=== PATIENT | female | born 1970 | race Caucasian/White ===

== ENCOUNTER 2019-12-10 17:30 | Observation (INO) ==
[2019-12-10] MEDS ORDERED: Naloxone 0.4 MG/ML INJ IVP ONE (18:08)
[2019-12-10] MEDS ORDERED: 0.9 % Sodium Chloride 1,000 ML IVC ONE (18:08)
[2019-12-10 18:38] LABS: Basophils # 0.1 K/mcL (0.0-0.2); Eosinophils # 0.1 K/mcL (0.0-0.6); Eosinophils % 1.3 %; Hematocrit 35.7 % (35.3-44.9); Hemoglobin 11.5 g/dL (11.5-15.4); Immature Granulocytes % 0.4 % (0-4); Lymphocytes # 2.1 K/mcL (0.6-4.6); Lymphocytes % 30.1 %; Mean Corpuscular HGB Conc 32.2 g/dL (31.6-35.5); Mean Corpuscular Volume 87.1 fL (83.0-100.0); Mean Platelet Volume 10.5 fL (9.4-12.4); Monocytes # 0.4 K/mcL (0.0-1.3); Monocytes % 6.3 %; Neutrophils # 4.1 K/mcL (1.6-8.9); Platelet Count 245 K/mcL (140-400); Segmented Neutrophils % 60.9 %; White Blood Count 6.8 K/mcL (4.3-11.1)
[2019-12-10 18:56] LABS: Acetaminophen < 10 mcg/mL (10-20); Alanine Aminotransferase 9 Units/L (7-52); Albumin 4.1 g/dL (3.5-5.7); Albumin/Globulin Ratio 1.4 (1.1-2.2); Alkaline Phosphatase 55 Units/L (34-104); Aspartate Amino Transferase 11 Units/L (13-39); BUN/Creatinine Ratio 16 (6-26); Bilirubin,Direct 0.1 mg/dL (0.0-0.2); Bilirubin,Indirect 0.3 mg/dL (0.0-1.0); Bilirubin,Total 0.4 mg/dL (0.3-1.0); Blood Urea Nitrogen 15 mg/dL (6-20); Calcium 9.1 mg/dL (8.6-10.3); Carbon Dioxide 23 mEq/L (23-29); Chloride 110 mEq/L (98-107); Ethanol 11 mg/dL (Less than 10); Globulin 2.9 g/dL (2.4-3.5); Glucose 100 mg/dL (70-105); Osmolality,Calculated 293 (280-300); Potassium 3.5 mEq/L (3.5-5.1); Salicylate < 2.5 mg/dL (15.0-30.0); Sodium 141 mEq/L (136-145); eGFR For African Americans > 60 (> 60); eGFR For Non-African Americans > 60 (> 60)
[2019-12-10 20:30] LABS: ABG Base Excess -4 mEq/L (-2 to 3); ABG HCO3 21 mEq/L (21-27); ABG Oxygen Saturation 96 % (95-98); ABG PCO2 36 mmHg (35-45); ABG PH 7.37 pH Units (7.32-7.45); ABG PO2 86 mmHg (85-104); ABG TCO2 22 mEq/L (20-26)
[2019-12-10 20:52] LABS: Bilirubin,Urine Negative (Negative); Blood,Urine Trace (Negative); Clarity,Urine Clear (Clear); Color,Urine Light-Yellow (Yellow); Glucose,Urine (UA) Normal (Normal); Hyaline Casts,Urine Few per lpf (None Seen); Ketones,Urine 20 mg/dL (Negative); Leukocyte Esterase,Urine Negative (Negative); Mucus,Urine Few per lpf (None-Few); Nitrite,Urine Negative (Negative); PH,Urine 5.5 pH Units (5.0-8.0); Protein,Urine Negative (Neg-Trace); Specific Gravity,Urine 1.016 (1.010-1.025); Urobilinogen,Urine Normal (Normal); WBC,Urine 0-3 per hpf (0-3)
[2019-12-10 21:08] LABS: Amphetamine Screen,Urine Positive ng/mL (Cutoff=1000); Barbiturate Screen,Urine Negative ng/mL (Cutoff=200); Benzodiazepines Screen,Urine Negative ng/mL (Cutoff=200); Cannabinoid Screen,Urine Negative ng/mL (Cutoff = 50); Cocaine Screen,Urine Negative ng/mL (Cutoff= 300); Opiate Screen,Urine Negative ng/mL (Cutoff=300); Phencyclidine Screen,Urine Negative ng/mL (Cutoff=25)
[2019-12-10] MEDS ORDERED: Naloxone 0.4 MG/ML INJ IVP PRN (23:36)
[2019-12-10] MEDS ORDERED: 0.9 % Sodium Chloride 1,000 ML IVC SCH (23:45)
[2019-12-11 04:16] LABS: Basophils % 0.6 %; Eosinophils # 0.1 K/mcL (0.0-0.6); Eosinophils % 0.9 %; Hematocrit 35.5 % (35.3-44.9); Immature Granulocytes % 0.2 % (0-4); Lymphocytes # 1.9 K/mcL (0.6-4.6); Lymphocytes % 29.5 %; Mean Corpuscular Hemoglobin 27.8 pg (28.0-33.3); Mean Corpuscular Volume 89.9 fL (83.0-100.0); Mean Platelet Volume 10.2 fL (9.4-12.4); Monocytes # 0.5 K/mcL (0.0-1.3); Platelet Count 201 K/mcL (140-400); Red Blood Count 3.95 M/mcL (3.82-4.97); Red Cell Distribution Width 12.9 % (11.5-14.5); Segmented Neutrophils % 61.8 %; White Blood Count 6.5 K/mcL (4.3-11.1)
[2019-12-11 04:33] LABS: Alanine Aminotransferase 7 Units/L (7-52); Albumin 3.7 g/dL (3.5-5.7); Albumin/Globulin Ratio 1.4 (1.1-2.2); Alkaline Phosphatase 52 Units/L (34-104); Aspartate Amino Transferase 10 Units/L (13-39); BUN/Creatinine Ratio 14 (6-26); Bilirubin,Total 0.4 mg/dL (0.3-1.0); Blood Urea Nitrogen 9 mg/dL (6-20); Calcium 8.6 mg/dL (8.6-10.3); Carbon Dioxide 22 mEq/L (23-29); Chloride 114 mEq/L (98-107); Globulin 2.6 g/dL (2.4-3.5); Glucose 99 mg/dL (70-105); Osmolality,Calculated 293 (280-300); Potassium 3.7 mEq/L (3.5-5.1); Sodium 142 mEq/L (136-145); Total Protein 6.3 g/dL (6.4-8.9); eGFR For African Americans > 60 (> 60); eGFR For Non-African Americans > 60 (> 60)
[2019-12-11] MEDS: *HR* Heparin 5,000 UNIT/ML VIAL SQ SCH ×3 (05:46→20:32)
[2019-12-11] MEDS ORDERED: 0.9 % Sodium Chloride 1,000 ML IVC SCH (09:00)
[2019-12-11] MEDS: 0.9 % Sodium Chloride 1,000 ML IVC SCH (17:13)
[2019-12-12] MEDS: 0.9 % Sodium Chloride 1,000 ML IVC SCH ×2 (00:29→08:34)
[2019-12-12] MEDS: *HR* Heparin 5,000 UNIT/ML VIAL SQ SCH (05:06)
[2019-12-12 07:06] VITALS: BP 131/77
== END 2019-12-12 11:00 ==
LOC: EMEROOARM 17:30 → 3BNU 17:30 → SUATTDRO 12-11 01:01 → 3BNU 12-11 01:39
PROVIDERS: ADMIT Family Medicine; ATTEND Family Medicine

== ENCOUNTER 2019-12-12 11:04 | Inpatient (IN) ==
[2019-12-12] MEDS ORDERED: hydrOXYzine pamoate 25 MG CAPSULE PO PRN (11:39)
[2019-12-12] MEDS ORDERED: Haloperidol Lactate 5 MG/ML VIAL IM PRN (11:39)
[2019-12-12] MEDS ORDERED: MOM Conc 10 ML UD.LIQ PO PRN (11:39)
[2019-12-12] MEDS ORDERED: *HR* LORazepam 2 MG/ML VIAL IM PRN (11:39)
[2019-12-12] MEDS ORDERED: *HR* LORazepam 1 MG TABLET PO PRN (11:39)
[2019-12-12] MEDS ORDERED: haloperidoL 5 MG TABLET PO PRN (11:39)
[2019-12-12] MEDS ORDERED: Mag Hydrox/Al Hydrox/Simeth 30 ML UDC PO PRN (11:39)
[2019-12-12] MEDS ORDERED: traZODone 50 MG TABLET PO PRN (11:39)
[2019-12-12] MEDS ORDERED: Acetaminophen 325 MG TABLET PO PRN (11:39)
[2019-12-12] MEDS: Nicotine 21 MG PATCH.TD24 TD SCH (13:01)
[2019-12-12] MEDS ORDERED: Ondansetron ODT 4 MG TAB.RAPDIS SL PRN (13:49)
[2019-12-12] MEDS: clonazePAM 0.5 MG TABLET PO SCH (20:49)
[2019-12-13] MEDS: clonazePAM 0.5 MG TABLET PO SCH (08:52)
[2019-12-13] MEDS: Nicotine 21 MG PATCH.TD24 TD SCH (08:52)
[2019-12-13 09:55] VITALS: BP 118/71
== END 2019-12-13 13:30 | disposition home or self-care (01) | DRG 753 ==
LOC: 1ANU 11:04
PROVIDERS: ADMIT Psychiatry & Neurology Psychiatry; ATTEND Psychiatry & Neurology Psychiatry